=== PATIENT | male | born 1970 | race Two or more races ===

== ENCOUNTER → 2025-04-16 | Outpatient (CLI) | payer MEDICAID, SELFPAY ==
--- NOTE | 2025-04-16 09:10 | XR_ITS ---
Examination: Esophagram standard Upright PA chest single view Soft tissue lateral neck single view 19 spot fluoroscopic films of the esophagus Date and time: April 16, 2025 0914 hours INDICATIONS: Difficulty swallowing reflux heartburn one year. TECHNIQUE AND FINDINGS: Upright PA chest demonstrates normal heart size. Lungs are clear Soft tissue lateral neck demonstrates normal epiglottis Patient swallowed thin barium with primary peristaltic esophageal waves noted Moderate intermittent gastroesophageal reflux There is no esophageal stricture No esophageal ulcerations IMPRESSION: Primary peristaltic esophageal waves noted Moderate intermittent gastroesophageal reflux There is no esophageal stricture Fluoroscopy 0.10 minutes 19 spot fluoroscopic films of the esophagus
== END | disposition home or self-care (01) ==
PROVIDERS: PCP Licensed Vocational Nurse; Referring Provider Nurse Practitioner Family; Visit Provider Nurse Practitioner Family
DX: K21.9 Gastro-esophageal reflux disease without esophagitis (principal)
CPT/HCPCS: 74220; A4649